=== PATIENT | female | born 1945 | race Caucasian/White ===

== ENCOUNTER 2020-11-01 04:15 | Inpatient (IN) | payer MEDICARE ==
[~2020-11-01] VITALS: Ht 170.2 cm; Wt 49.4 kg
[2020-11-01 04:00] VITALS: BP 161/74
[2020-11-01 06:06] VITALS: BP 165/75
[2020-11-01] MEDS ORDERED: MORPHINE SULFATE 2 MG/ML CPJ (NOT FOR IM USE) IV PRN (07:30)
[2020-11-01] MEDS ORDERED: GUAIFENESIN 200MG/10ML SUGAR FREE UDC PO PRN (07:30)
[2020-11-01] MEDS ORDERED: CLONIDINE 0.1MG TABLET PO PRN (07:30)
[2020-11-01] MEDS ORDERED: IPRATROPIUM/ALBUTEROL 0.5-3(2.5)MG/3ML NEB HHN PRN (07:30)
[2020-11-01] MEDS ORDERED: ONDANSETRON HCL 4MG/2ML INJ IV PRN ×2 (07:30→13:30)
[2020-11-01] MEDS ORDERED: PNEUMOCOCCAL 23-VAL P-SAC VAC 0.5 ML IM ONE (07:45)
[2020-11-01 08:00] VITALS: BP 156/77
[2020-11-01] MEDS ORDERED: DOCUSATE SODIUM 100MG CAPSULE PO PRN (09:00)
[2020-11-01] MEDS ORDERED: MAGNESIUM/ALUMINUM HYDROXIDE/SIMETHICONE 30ML UDC PO PRN (09:00)
[2020-11-01] MEDS ORDERED: POLYMYXIN B SULFATE 500000 UNITS/VIAL ONE (11:09)
[2020-11-01] MEDS ORDERED: VANCOMYCIN HCL 1 GM/VIAL ONE (11:09)
[2020-11-01 11:36] LABS: BASOPHILS % 0.6 % (0.0-2.0); EOSINOPHILS % 2.5 % (0.0-5.0); HEMATOCRIT. 21.8 % (36.0-48.0); HEMOGLOBIN. 7.4 g/dL (12.0-16.0); LYMPHOCYTES % 21.2 % (20.0-50.0); MEAN CORPUSCULAR HEMOGLOBIN 29.9 pg (28.0-32.0); MEAN CORPUSCULAR VOLUME 87.8 fL (81.0-99.0); MEAN PLATELET VOLUME 7.7 fl (7.4-10.4); MONOCYTES % 11.7 % (2.0-8.0); PLATELET 236 x1000/uL (130-400); RED BLOOD CELL COUNT 2.48 mill/uL (4.2-5.4); RED CELL DISTRIBUTION WIDTH 15.4 % (11.6-14.6)
[2020-11-01 12:00] VITALS: BP 166/80
[2020-11-01 12:11] LABS: CHLORIDE 110 mEq/L (98-107)
[2020-11-01 12:20] LABS: HDL CHOLESTEROL 35 mg/dL (40-59)
[2020-11-01 12:22] LABS: LDL CHOLESTEROL 75 mg/dL (5-100)
[2020-11-01 12:23] LABS: CREATINE KINASE 19 IU/L (26-192)
[2020-11-01] MEDS ORDERED: HYDROMORPHONE HCL/PF 2MG/ML CPJ IV PRN (13:30)
[2020-11-01] MEDS ORDERED: CEFAZOLIN SODIUM 1000MG/VIAL ONE (13:33)
[2020-11-01] MEDS ORDERED: FENTANYL CITRATE/PF 50MCG/ML 2ML VIAL ONE (13:42)
[2020-11-01] MEDS ORDERED: DEXAMETHASONE 4MG/ML 1ML VIAL ONE (13:44)
[2020-11-01] MEDS ORDERED: FUROSEMIDE 40MG/4ML VIAL ONE (14:00)
[2020-11-01] MEDS ORDERED: VANCOMYCIN 1 G PREMIX 200 ML IV NR (17:00)
[2020-11-01] MEDS ORDERED: POTASSIUM CHLORIDE 20MEQ TABLET SR PO NR (19:30)
[2020-11-01 20:00] VITALS: BP 107/59
[2020-11-01 20:21] LABS: PARTIAL THROMBOPLASTIN TIME 27.7 sec (23.4-31.0); PROTHROMBIN TIME 11.2 sec (9.6-11.0)
[2020-11-01] MEDS: HYDROCODONE/ACETAMINOPHEN 5/325MG TABLET PO PRN (20:54)
[2020-11-01] MEDS: VANCOMYCIN 750 MG PREMIX 150 ML IV SCH (21:00)
[2020-11-02] VITALS: BP 139/88
[2020-11-02 04:00] VITALS: BP 154/87
[2020-11-02] MEDS: HYDROCODONE/ACETAMINOPHEN 5/325MG TABLET PO PRN ×2 (04:51→09:20)
[2020-11-02 06:01] LABS: CLARITY URINE CLEAR (CLEAR); COLOR URINE YELLOW (YELLOW); KETONES URINE TRACE (NEGATIVE); LEUKOCYTE ESTERASE URINE NEGATIVE (NEGATIVE); NITRITE URINE NEGATIVE (NEGATIVE); OCCULT BLOOD URINE NEGATIVE (NEGATIVE); PH URINE 6.5 (4.5-8.0); PROTEIN URINE TRACE (NEGATIVE); SPECIFIC GRAVITY URINE 1.018 (1.005-1.030)
[2020-11-02 06:14] LABS: BASOPHILS % 0.1 % (0.0-2.0); HEMATOCRIT. 29.3 % (36.0-48.0); HEMOGLOBIN. 10.1 g/dL (12.0-16.0); LYMPHOCYTES % 7.5 % (20.0-50.0); MEAN CORPUSCULAR HEMOGLOBIN 29.2 pg (28.0-32.0); MEAN PLATELET VOLUME 7.9 fl (7.4-10.4); MONOCYTES % 11.5 % (2.0-8.0); NEUTROPHILS % 80.9 % (40.0-76.0); PLATELET 294 x1000/uL (130-400); RED BLOOD CELL COUNT 3.45 mill/uL (4.2-5.4); RED CELL DISTRIBUTION WIDTH 15.5 % (11.6-14.6)
[2020-11-02 06:15] LABS: CHLORIDE 106 mEq/L (98-107)
[2020-11-02] MEDS: PANTOPRAZOLE 40MG DR TABLET PO SCH (06:24)
[2020-11-02 08:00] VITALS: BP 104/67
[2020-11-02] MEDS ORDERED: ENOXAPARIN 40MG/0.4ML SYR SUBCUT SCH (09:00)
[2020-11-02] MEDS ORDERED: POTASSIUM CHLORIDE 20MEQ TABLET SR PO NR (09:00)
[2020-11-02 12:00] VITALS: BP 140/86
[2020-11-02] MEDS: VANCOMYCIN 750 MG PREMIX 150 ML IV SCH (12:00)
[2020-11-02 16:00] VITALS: BP 117/86
[2020-11-02] MEDS: DOXYCYCLINE HYCLATE 100MG CAPSULE PO SCH (18:59)
[2020-11-02 20:00] VITALS: BP 138/73
[2020-11-03 00:04] VITALS: BP 146/86
[2020-11-03 04:00] VITALS: BP 154/82
[2020-11-03 05:54] LABS: CHLORIDE 108 mEq/L (98-107)
[2020-11-03 06:11] LABS: BASOPHILS % 0.3 % (0.0-2.0); EOSINOPHILS % 0.8 % (0.0-5.0); LYMPHOCYTES % 16.2 % (20.0-50.0); MEAN CORPUSCULAR HEMOGLOBIN 28.4 pg (28.0-32.0); MEAN CORPUSCULAR VOLUME 85.1 fL (81.0-99.0); MEAN PLATELET VOLUME 7.5 fl (7.4-10.4); MONOCYTES % 10.8 % (2.0-8.0); NEUTROPHILS % 71.9 % (40.0-76.0); PLATELET 347 x1000/uL (130-400); RED BLOOD CELL COUNT 3.17 mill/uL (4.2-5.4); RED CELL DISTRIBUTION WIDTH 15.8 % (11.6-14.6)
[2020-11-03] MEDS ORDERED: POTASSIUM CHLORIDE 20MEQ TABLET SR PO SCH ×2 (06:15→14:00)
[2020-11-03] MEDS: PANTOPRAZOLE 40MG DR TABLET PO SCH (06:31)
[2020-11-03 08:00] VITALS: BP 171/92
[2020-11-03] MEDS: DOXYCYCLINE HYCLATE 100MG CAPSULE PO SCH ×2 (09:22→18:04)
[2020-11-03] MEDS: HYDROCODONE/ACETAMINOPHEN 5/325MG TABLET PO PRN ×3 (09:23→20:56)
[2020-11-03 12:00] VITALS: BP 112/68
[2020-11-03 16:00] VITALS: BP 128/71
[2020-11-03 20:00] VITALS: BP 152/81
[2020-11-04] VITALS: BP 140/72
[2020-11-04 04:00] VITALS: BP 143/59
[2020-11-04 07:34] LABS: BASOPHILS % 0.9 % (0.0-2.0); EOSINOPHILS % 4.6 % (0.0-5.0); HEMATOCRIT. 26.4 % (36.0-48.0); HEMOGLOBIN. 9.1 g/dL (12.0-16.0); MEAN CORPUSCULAR HEMOGLOBIN 29.5 pg (28.0-32.0); MEAN CORPUSCULAR VOLUME 86.1 fL (81.0-99.0); MEAN PLATELET VOLUME 7.6 fl (7.4-10.4); MONOCYTES % 11.3 % (2.0-8.0); NEUTROPHILS % 60.2 % (40.0-76.0); PLATELET 355 x1000/uL (130-400); RED BLOOD CELL COUNT 3.07 mill/uL (4.2-5.4)
[2020-11-04 07:44] LABS: CHLORIDE 111 mEq/L (98-107)
[2020-11-04 07:55] LABS: T4 FREE 1.49 ng/dL (0.76-1.46)
[2020-11-04 07:57] LABS: FOLIC ACID (FOLATE) SERUM 7.5 ng/mL (>5.38)
[2020-11-04 08:00] VITALS: BP 155/76
[2020-11-04] MEDS: DOXYCYCLINE HYCLATE 100MG CAPSULE PO SCH ×2 (08:11→18:05)
[2020-11-04] MEDS: FAMOTIDINE 20MG TABLET PO SCH (08:12)
[2020-11-04] MEDS: HYDROCODONE/ACETAMINOPHEN 5/325MG TABLET PO PRN ×4 (08:12→22:21)
[2020-11-04 12:00] VITALS: BP 165/91
[2020-11-04] MEDS: CYANOCOBALAMIN 1000MCG/ML VIAL IM SCH (14:01)
[2020-11-04 16:00] VITALS: BP 121/49
[2020-11-04 20:00] VITALS: BP 110/56
[2020-11-04 21:13] LABS: T4 FREE 1.51 ng/dL (0.76-1.46)
[2020-11-05] VITALS: BP 141/63
[2020-11-05] MEDS: HYDROCODONE/ACETAMINOPHEN 5/325MG TABLET PO PRN ×4 (01:56→18:32)
[2020-11-05 04:00] VITALS: BP 117/57
[2020-11-05 05:32] LABS: BASOPHILS % 1.2 % (0.0-2.0); EOSINOPHILS % 5.9 % (0.0-5.0); HEMOGLOBIN. 8.4 g/dL (12.0-16.0); LYMPHOCYTES % 25.1 % (20.0-50.0); MEAN CORPUSCULAR HEMOGLOBIN 29.1 pg (28.0-32.0); MEAN CORPUSCULAR VOLUME 86.7 fL (81.0-99.0); MEAN PLATELET VOLUME 7.4 fl (7.4-10.4); MONOCYTES % 10.3 % (2.0-8.0); NEUTROPHILS % 57.5 % (40.0-76.0); PLATELET 391 x1000/uL (130-400); RED BLOOD CELL COUNT 2.88 mill/uL (4.2-5.4); RED CELL DISTRIBUTION WIDTH 15.6 % (11.6-14.6)
[2020-11-05 05:38] LABS: CHLORIDE 108 mEq/L (98-107)
[2020-11-05 08:00] VITALS: BP 117/68
[2020-11-05] MEDS: CYANOCOBALAMIN 1000MCG/ML VIAL IM SCH (08:57)
[2020-11-05] MEDS: DOXYCYCLINE HYCLATE 100MG CAPSULE PO SCH ×2 (08:57→16:44)
[2020-11-05] MEDS: FAMOTIDINE 20MG TABLET PO SCH (09:34)
[2020-11-05 12:00] VITALS: BP 106/61
[2020-11-05] MEDS ORDERED: BISACODYL 10MG SUPP PR PRN (12:00)
[2020-11-05] MEDS: LACTULOSE 20G/30ML UDC PO SCH ×3 (12:47→19:35)
[2020-11-05 14:43] LABS: TOTAL IRON BINDING CAPACITY 187 ug/dL (250-450)
[2020-11-05 16:00] VITALS: BP 124/80
[2020-11-05] MEDS: FERROUS SULFATE 325MG TABLET PO SCH (18:31)
[2020-11-05 20:00] VITALS: BP 107/85
[2020-11-06] VITALS: BP 141/74
[2020-11-06] MEDS: HYDROCODONE/ACETAMINOPHEN 5/325MG TABLET PO PRN ×3 (03:56→18:52)
[2020-11-06 04:00] VITALS: BP 171/88
[2020-11-06 08:00] VITALS: BP 152/85
[2020-11-06] MEDS: FAMOTIDINE 20MG TABLET PO SCH (08:28)
[2020-11-06] MEDS: CYANOCOBALAMIN 1000MCG/ML VIAL IM SCH (08:28)
[2020-11-06] MEDS: FERROUS SULFATE 325MG TABLET PO SCH ×3 (08:29→17:41)
[2020-11-06] MEDS: ASCORBIC ACID 500 MG TABLET PO SCH (10:46)
[2020-11-06 12:00] VITALS: BP 158/86
[2020-11-06 16:00] VITALS: BP 139/63
[2020-11-06 20:00] VITALS: BP 111/58
[2020-11-07] VITALS: BP 111/58
[2020-11-07 04:00] VITALS: BP 139/65
[2020-11-07 08:00] VITALS: BP 158/79
[2020-11-07] MEDS: ASCORBIC ACID 500 MG TABLET PO SCH (08:45)
[2020-11-07] MEDS: FAMOTIDINE 20MG TABLET PO SCH (08:46)
[2020-11-07] MEDS: CYANOCOBALAMIN 1000MCG/ML VIAL IM SCH (08:46)
[2020-11-07] MEDS: FERROUS SULFATE 325MG TABLET PO SCH ×3 (08:46→17:39)
[2020-11-07] MEDS: HYDROCODONE/ACETAMINOPHEN 5/325MG TABLET PO PRN ×2 (09:24→17:40)
[2020-11-07 12:00] VITALS: BP 139/72
[2020-11-07 16:00] VITALS: BP 131/55
[2020-11-07 17:16] LABS: HEMATOCRIT 26.2 % (36.0-48.0)
[2020-11-07 22:09] VITALS: BP 122/77
[2020-11-08 01:24] VITALS: BP 131/59
[2020-11-08 05:34] VITALS: BP 150/83
[2020-11-08 08:00] VITALS: BP 143/86
[2020-11-08] MEDS: ASCORBIC ACID 500 MG TABLET PO SCH (09:42)
[2020-11-08] MEDS: CYANOCOBALAMIN 1000MCG/ML VIAL IM SCH (09:42)
[2020-11-08] MEDS: FERROUS SULFATE 325MG TABLET PO SCH ×3 (09:42→18:29)
[2020-11-08] MEDS: FAMOTIDINE 20MG TABLET PO SCH (09:42)
[2020-11-08 12:00] VITALS: BP 146/77
[2020-11-08] MEDS: HYDROCODONE/ACETAMINOPHEN 5/325MG TABLET PO PRN (15:14)
[2020-11-08 16:00] VITALS: BP 117/60
[2020-11-08] MEDS: DOCUSATE SODIUM 100MG CAPSULE PO SCH (18:29)
[2020-11-08 20:00] VITALS: BP 129/53
[2020-11-08] MEDS: POLYETHYLENE GLYCOL 3350 (17GM) 1 DOSE PACK PO SCH (22:04)
[2020-11-09] VITALS: BP 131/70
[2020-11-09 04:00] VITALS: BP 140/77
[2020-11-09 08:00] VITALS: BP 139/84
[2020-11-09] MEDS: ASCORBIC ACID 500 MG TABLET PO SCH (09:17)
[2020-11-09] MEDS: FAMOTIDINE 20MG TABLET PO SCH (09:17)
[2020-11-09] MEDS: DOCUSATE SODIUM 100MG CAPSULE PO SCH ×2 (09:17→18:07)
[2020-11-09] MEDS: FERROUS SULFATE 325MG TABLET PO SCH ×3 (09:17→18:07)
[2020-11-09] MEDS: CYANOCOBALAMIN 1000MCG/ML VIAL IM SCH (09:20)
[2020-11-09] MEDS: HYDROCODONE/ACETAMINOPHEN 5/325MG TABLET PO PRN (09:22)
[2020-11-09 12:00] VITALS: BP 125/68
[2020-11-09] MEDS: LACTULOSE 20G/30ML UDC PO SCH ×3 (14:39→21:00)
[2020-11-09 15:12] LABS: 25-HYDROXY VITAMIN D3 8.1 ng/mL (.)
[2020-11-09 16:00] VITALS: BP 138/55
[2020-11-09 20:00] VITALS: BP 127/70
[2020-11-09] MEDS: POLYETHYLENE GLYCOL 3350 (17GM) 1 DOSE PACK PO SCH (21:00)
[2020-11-10] VITALS: BP 134/83
[2020-11-10 04:00] VITALS: BP 124/81
[2020-11-10 06:20] LABS: BASOPHILS % 1.2 % (0.0-2.0); EOSINOPHILS % 4.3 % (0.0-5.0); HEMOGLOBIN. 9.5 g/dL (12.0-16.0); MEAN CORPUSCULAR HEMOGLOBIN 28.3 pg (28.0-32.0); MEAN CORPUSCULAR VOLUME 86.1 fL (81.0-99.0); MEAN PLATELET VOLUME 7.4 fl (7.4-10.4); MONOCYTES % 12.6 % (2.0-8.0); NEUTROPHILS % 58.9 % (40.0-76.0); PLATELET 601 x1000/uL (130-400); RED BLOOD CELL COUNT 3.37 mill/uL (4.2-5.4); RED CELL DISTRIBUTION WIDTH 16.6 % (11.6-14.6)
[2020-11-10 06:25] LABS: CHLORIDE 107 mEq/L (98-107)
[2020-11-10] MEDS: MULTIVITAMINS,THER W-MINERALS TABLET PO SCH (08:40)
[2020-11-10] MEDS: DOCUSATE SODIUM 100MG CAPSULE PO SCH ×2 (08:40→18:00)
[2020-11-10] MEDS: CYANOCOBALAMIN 1000MCG/ML VIAL IM SCH (08:41)
[2020-11-10] MEDS: FAMOTIDINE 20MG TABLET PO SCH (08:42)
[2020-11-10] MEDS: ASCORBIC ACID 500 MG TABLET PO SCH (08:42)
[2020-11-10] MEDS: HYDROCODONE/ACETAMINOPHEN 5/325MG TABLET PO PRN ×2 (08:44→13:56)
[2020-11-10] MEDS: FERROUS SULFATE 325MG TABLET PO SCH ×3 (09:16→18:01)
[2020-11-10] MEDS ORDERED: ERGOCALCIFEROL 50000UNITS CAPSULE PO SCH (17:00)
[2020-11-10 20:00] VITALS: BP 122/68
[2020-11-10] MEDS: POLYETHYLENE GLYCOL 3350 (17GM) 1 DOSE PACK PO SCH (21:14)
[2020-11-11] VITALS: BP 112/54
[2020-11-11 04:00] VITALS: BP 131/69
[2020-11-11] MEDS: FERROUS SULFATE 325MG TABLET PO SCH ×3 (08:24→17:37)
[2020-11-11] MEDS: DOCUSATE SODIUM 100MG CAPSULE PO SCH ×2 (09:24→17:37)
[2020-11-11] MEDS: MULTIVITAMINS,THER W-MINERALS TABLET PO SCH (09:24)
[2020-11-11] MEDS: ASCORBIC ACID 500 MG TABLET PO SCH (09:24)
[2020-11-11] MEDS: FAMOTIDINE 20MG TABLET PO SCH (09:24)
[2020-11-11] MEDS: HYDROCODONE/ACETAMINOPHEN 5/325MG TABLET PO PRN ×2 (09:24→17:37)
[2020-11-11 16:00] VITALS: BP 121/73
[2020-11-11] MEDS ORDERED: NALOXONE HCL 0.4MG/ML VIAL IV PRN (19:30)
[2020-11-11 20:00] VITALS: BP 115/69
[2020-11-11] MEDS: POLYETHYLENE GLYCOL 3350 (17GM) 1 DOSE PACK PO SCH (21:41)
[2020-11-12] VITALS: BP 128/61
[2020-11-12 04:00] VITALS: BP 139/80
[2020-11-12 05:29] VITALS: BP 139/80
[2020-11-12] MEDS: ASCORBIC ACID 500 MG TABLET PO SCH (08:52)
[2020-11-12] MEDS: FERROUS SULFATE 325MG TABLET PO SCH ×3 (08:52→17:52)
[2020-11-12] MEDS: FAMOTIDINE 20MG TABLET PO SCH (08:52)
[2020-11-12] MEDS: DOCUSATE SODIUM 100MG CAPSULE PO SCH ×2 (08:53→17:52)
[2020-11-12] MEDS: MULTIVITAMINS,THER W-MINERALS TABLET PO SCH (09:17)
[2020-11-12] MEDS: HYDROCODONE/ACETAMINOPHEN 5/325MG TABLET PO PRN (09:18)
[2020-11-12 20:00] VITALS: BP 154/94
[2020-11-12] MEDS: POLYETHYLENE GLYCOL 3350 (17GM) 1 DOSE PACK PO SCH (21:00)
[2020-11-13] VITALS: BP 146/67
[2020-11-13 04:00] VITALS: BP 143/67
[2020-11-13] MEDS: FAMOTIDINE 20MG TABLET PO SCH (08:30)
[2020-11-13] MEDS: DOCUSATE SODIUM 100MG CAPSULE PO SCH ×2 (08:30→16:40)
[2020-11-13] MEDS: FERROUS SULFATE 325MG TABLET PO SCH ×3 (08:30→17:18)
[2020-11-13] MEDS: MULTIVITAMINS,THER W-MINERALS TABLET PO SCH (08:31)
[2020-11-13] MEDS: ASCORBIC ACID 500 MG TABLET PO SCH (08:31)
[2020-11-13 12:00] VITALS: BP 119/74
[2020-11-13 16:00] VITALS: BP 95/74
[2020-11-13 20:00] VITALS: BP 128/82
[2020-11-13] MEDS: POLYETHYLENE GLYCOL 3350 (17GM) 1 DOSE PACK PO SCH (20:30)
[2020-11-14] VITALS: BP_SYST 118; BP_SYST 133; BP_DIAS 55; BP_DIAS 80
[2020-11-14 04:00] VITALS: BP 159/93
[2020-11-14 08:00] VITALS: BP 122/68
[2020-11-14] MEDS: FERROUS SULFATE 325MG TABLET PO SCH ×3 (08:36→17:16)
[2020-11-14] MEDS: DOCUSATE SODIUM 100MG CAPSULE PO SCH ×2 (08:36→16:56)
[2020-11-14] MEDS: ASCORBIC ACID 500 MG TABLET PO SCH (08:37)
[2020-11-14] MEDS: MULTIVITAMINS,THER W-MINERALS TABLET PO SCH (08:37)
[2020-11-14] MEDS: FAMOTIDINE 20MG TABLET PO SCH (08:37)
[2020-11-14] MEDS: HYDROCODONE/ACETAMINOPHEN 5/325MG TABLET PO PRN ×4 (08:45→21:38)
[2020-11-14 12:00] VITALS: BP 126/69
[2020-11-14 16:00] VITALS: BP 130/71
[2020-11-14 20:00] VITALS: BP 116/63
[2020-11-14] MEDS: POLYETHYLENE GLYCOL 3350 (17GM) 1 DOSE PACK PO SCH (21:37)
[2020-11-15] VITALS: BP 134/80
[2020-11-15 04:00] VITALS: BP 144/81
[2020-11-15 08:00] VITALS: BP 133/44
[2020-11-15] MEDS: DOCUSATE SODIUM 100MG CAPSULE PO SCH ×2 (08:52→17:32)
[2020-11-15] MEDS: MULTIVITAMINS,THER W-MINERALS TABLET PO SCH (08:52)
[2020-11-15] MEDS: ASCORBIC ACID 500 MG TABLET PO SCH (08:52)
[2020-11-15] MEDS: FAMOTIDINE 20MG TABLET PO SCH (08:52)
[2020-11-15] MEDS: FERROUS SULFATE 325MG TABLET PO SCH ×3 (08:52→17:32)
[2020-11-15] MEDS: HYDROCODONE/ACETAMINOPHEN 5/325MG TABLET PO PRN ×2 (08:53→17:34)
[2020-11-15 12:00] VITALS: BP 136/76
[2020-11-15] MEDS: POLYETHYLENE GLYCOL 3350 (17GM) 1 DOSE PACK PO SCH (20:38)
[2020-11-16 08:00] VITALS: BP 142/92
[2020-11-16] MEDS: MULTIVITAMINS,THER W-MINERALS TABLET PO SCH (09:10)
[2020-11-16] MEDS: FERROUS SULFATE 325MG TABLET PO SCH ×3 (09:10→18:05)
[2020-11-16] MEDS: DOCUSATE SODIUM 100MG CAPSULE PO SCH ×2 (09:10→18:05)
[2020-11-16] MEDS: HYDROCODONE/ACETAMINOPHEN 5/325MG TABLET PO PRN ×2 (09:11→20:08)
[2020-11-16] MEDS: ASCORBIC ACID 500 MG TABLET PO SCH (09:15)
[2020-11-16] MEDS: FAMOTIDINE 20MG TABLET PO SCH (13:09)
[2020-11-16 20:00] VITALS: BP 109/61
[2020-11-16] MEDS: POLYETHYLENE GLYCOL 3350 (17GM) 1 DOSE PACK PO SCH (21:00)
[2020-11-16 21:40] LABS: BASOPHILS % 1.5 % (0.0-2.0); EOSINOPHILS % 2.1 % (0.0-5.0); HEMATOCRIT. 30.9 % (36.0-48.0); HEMOGLOBIN. 10.2 g/dL (12.0-16.0); LYMPHOCYTES % 20.4 % (20.0-50.0); MEAN CORPUSCULAR HEMOGLOBIN 28.9 pg (28.0-32.0); MEAN CORPUSCULAR VOLUME 87.6 fL (81.0-99.0); MEAN PLATELET VOLUME 7.6 fl (7.4-10.4); MONOCYTES % 11.6 % (2.0-8.0); NEUTROPHILS % 64.4 % (40.0-76.0); PLATELET 381 x1000/uL (130-400); RED BLOOD CELL COUNT 3.52 mill/uL (4.2-5.4); RED CELL DISTRIBUTION WIDTH 17.5 % (11.6-14.6)
[2020-11-16 21:47] LABS: CHLORIDE 107 mEq/L (98-107)
[2020-11-17] VITALS: BP 116/70
[2020-11-17 04:00] VITALS: BP 128/44
[2020-11-17 08:00] VITALS: BP 96/51
[2020-11-17] MEDS: ERGOCALCIFEROL 50000UNITS CAPSULE PO SCH (09:14)
[2020-11-17] MEDS: FAMOTIDINE 20MG TABLET PO SCH (09:14)
[2020-11-17] MEDS: DOCUSATE SODIUM 100MG CAPSULE PO SCH ×2 (09:14→17:00)
[2020-11-17] MEDS: FERROUS SULFATE 325MG TABLET PO SCH ×3 (09:14→17:21)
[2020-11-17] MEDS: ASCORBIC ACID 500 MG TABLET PO SCH (09:14)
[2020-11-17] MEDS: HYDROCODONE/ACETAMINOPHEN 5/325MG TABLET PO PRN (09:15)
[2020-11-17] MEDS: MULTIVITAMINS,THER W-MINERALS TABLET PO SCH (09:15)
[2020-11-17] MEDS: CYANOCOBALAMIN 1000MCG/ML VIAL IM SCH (09:15)
[2020-11-17 12:00] VITALS: BP 150/67
[2020-11-17 16:00] VITALS: BP 155/75
[2020-11-17] MEDS ORDERED: NALOXONE HCL 0.4MG/ML VIAL IV PRN (17:45)
[2020-11-17 20:00] VITALS: BP 146/68
[2020-11-17] MEDS: POLYETHYLENE GLYCOL 3350 (17GM) 1 DOSE PACK PO SCH (20:49)
[2020-11-18] VITALS: BP 120/55
[2020-11-18 04:00] VITALS: BP 151/71
[2020-11-18 08:00] VITALS: BP 167/84
[2020-11-18] MEDS: MULTIVITAMINS,THER W-MINERALS TABLET PO SCH (08:18)
[2020-11-18] MEDS: ASCORBIC ACID 500 MG TABLET PO SCH (08:18)
[2020-11-18] MEDS: FERROUS SULFATE 325MG TABLET PO SCH ×3 (08:18→16:25)
[2020-11-18] MEDS: FAMOTIDINE 20MG TABLET PO SCH (08:18)
[2020-11-18] MEDS: DOCUSATE SODIUM 100MG CAPSULE PO SCH ×2 (09:00→16:26)
[2020-11-18 12:00] VITALS: BP 97/61
[2020-11-18 16:00] VITALS: BP 149/61
[2020-11-18 20:00] VITALS: BP 125/79
[2020-11-18] MEDS: POLYETHYLENE GLYCOL 3350 (17GM) 1 DOSE PACK PO SCH (21:00)
[2020-11-19] VITALS: BP 134/92
[2020-11-19 04:00] VITALS: BP 141/83
[2020-11-19 08:00] VITALS: BP 140/79
[2020-11-19] MEDS: DOCUSATE SODIUM 100MG CAPSULE PO SCH ×2 (09:15→18:15)
[2020-11-19] MEDS: FERROUS SULFATE 325MG TABLET PO SCH ×3 (09:15→18:15)
[2020-11-19] MEDS: MULTIVITAMINS,THER W-MINERALS TABLET PO SCH (09:15)
[2020-11-19] MEDS: HYDROCODONE/ACETAMINOPHEN 5/325MG TABLET PO PRN (09:15)
[2020-11-19] MEDS: ASCORBIC ACID 500 MG TABLET PO SCH (09:16)
[2020-11-19] MEDS: FAMOTIDINE 20MG TABLET PO SCH (09:16)
[2020-11-19 12:00] VITALS: BP 131/77
[2020-11-19 16:00] VITALS: BP 131/83
[2020-11-19 20:00] VITALS: BP 131/83
[2020-11-19] MEDS: POLYETHYLENE GLYCOL 3350 (17GM) 1 DOSE PACK PO SCH (20:32)
[2020-11-20] VITALS: BP 127/71
[2020-11-20 04:00] VITALS: BP 131/72
[2020-11-20 05:48] LABS: BASOPHILS % 1.3 % (0.0-2.0); EOSINOPHILS % 3.4 % (0.0-5.0); HEMATOCRIT. 31.7 % (36.0-48.0); HEMOGLOBIN. 10.4 g/dL (12.0-16.0); LYMPHOCYTES % 28.5 % (20.0-50.0); MEAN CORPUSCULAR HEMOGLOBIN 29.3 pg (28.0-32.0); MEAN CORPUSCULAR VOLUME 88.9 fL (81.0-99.0); MEAN PLATELET VOLUME 8.7 fl (7.4-10.4); MONOCYTES % 12.1 % (2.0-8.0); NEUTROPHILS % 54.7 % (40.0-76.0); PLATELET 315 x1000/uL (130-400); RED BLOOD CELL COUNT 3.57 mill/uL (4.2-5.4); RED CELL DISTRIBUTION WIDTH 17.5 % (11.6-14.6)
[2020-11-20 06:15] LABS: CHLORIDE 112 mEq/L (98-107)
[2020-11-20 08:00] VITALS: BP 146/68
[2020-11-20] MEDS: MULTIVITAMINS,THER W-MINERALS TABLET PO SCH (10:13)
[2020-11-20] MEDS: DOCUSATE SODIUM 100MG CAPSULE PO SCH ×2 (10:13→17:09)
[2020-11-20] MEDS: ASCORBIC ACID 500 MG TABLET PO SCH (10:13)
[2020-11-20] MEDS: FAMOTIDINE 20MG TABLET PO SCH (10:13)
[2020-11-20] MEDS: FERROUS SULFATE 325MG TABLET PO SCH ×3 (10:13→18:21)
[2020-11-20] MEDS: HYDROCODONE/ACETAMINOPHEN 5/325MG TABLET PO PRN ×2 (10:26→17:14)
[2020-11-20 12:00] VITALS: BP 103/56
[2020-11-20 16:00] VITALS: BP 101/60
[2020-11-20] MEDS ORDERED: POTASSIUM CHLORIDE 20MEQ TABLET SR PO NR (16:15)
[2020-11-20 20:00] VITALS: BP 127/88
[2020-11-20] MEDS: POLYETHYLENE GLYCOL 3350 (17GM) 1 DOSE PACK PO SCH (20:27)
[2020-11-21] VITALS: BP 118/65
[2020-11-21 04:00] VITALS: BP 115/83
[2020-11-21 08:00] VITALS: BP 128/78
[2020-11-21] MEDS: FAMOTIDINE 20MG TABLET PO SCH (08:30)
[2020-11-21] MEDS: FERROUS SULFATE 325MG TABLET PO SCH ×3 (08:30→17:58)
[2020-11-21] MEDS: ASCORBIC ACID 500 MG TABLET PO SCH (08:30)
[2020-11-21] MEDS: MULTIVITAMINS,THER W-MINERALS TABLET PO SCH (08:30)
[2020-11-21] MEDS: DOCUSATE SODIUM 100MG CAPSULE PO SCH ×2 (08:30→17:00)
[2020-11-21 12:00] VITALS: BP 143/78
[2020-11-21 16:00] VITALS: BP 139/66
[2020-11-21 20:00] VITALS: BP 110/60
[2020-11-21] MEDS: POLYETHYLENE GLYCOL 3350 (17GM) 1 DOSE PACK PO SCH (21:00)
[2020-11-22] VITALS: BP 115/75
[2020-11-22 04:00] VITALS: BP 136/63
[2020-11-22 08:00] VITALS: BP 139/76
[2020-11-22] MEDS: FERROUS SULFATE 325MG TABLET PO SCH ×3 (08:42→17:42)
[2020-11-22] MEDS: ASCORBIC ACID 500 MG TABLET PO SCH (08:42)
[2020-11-22] MEDS: FAMOTIDINE 20MG TABLET PO SCH (08:42)
[2020-11-22] MEDS: DOCUSATE SODIUM 100MG CAPSULE PO SCH (08:42)
[2020-11-22] MEDS: MULTIVITAMINS,THER W-MINERALS TABLET PO SCH (10:02)
[2020-11-22] MEDS: HYDROCODONE/ACETAMINOPHEN 5/325MG TABLET PO PRN (10:12)
[2020-11-22] MEDS ORDERED: FERR325T23 PO (11:08)
[2020-11-22] MEDS ORDERED: HYDR-4001 PO (11:08)
[2020-11-22] MEDS ORDERED: DOCU-150 PO (11:08)
[2020-11-22] MEDS ORDERED: FAMO20TA8 PO (11:08)
[2020-11-22 12:00] VITALS: BP 104/71
[2020-11-22] MEDS: ENOXAPARIN 40MG/0.4ML SYR SUBCUT SCH (12:41)
[2020-11-22 16:00] VITALS: BP 109/71
[2020-11-22 20:00] VITALS: BP 102/68
[2020-11-23] VITALS: BP 114/70
[2020-11-23 04:00] VITALS: BP 138/82
[2020-11-23 08:00] VITALS: BP 132/54
[2020-11-23] MEDS: FERROUS SULFATE 325MG TABLET PO SCH ×3 (09:52→17:42)
[2020-11-23] MEDS: FAMOTIDINE 20MG TABLET PO SCH (09:52)
[2020-11-23] MEDS: ASCORBIC ACID 500 MG TABLET PO SCH (09:52)
[2020-11-23] MEDS: HYDROCODONE/ACETAMINOPHEN 5/325MG TABLET PO PRN ×2 (09:54→22:07)
[2020-11-23] MEDS: MULTIVITAMINS,THER W-MINERALS TABLET PO SCH (10:00)
[2020-11-23] MEDS: ENOXAPARIN 40MG/0.4ML SYR SUBCUT SCH (11:00)
[2020-11-23 12:00] VITALS: BP 119/73
[2020-11-23 16:00] VITALS: BP 132/82
[2020-11-23 20:00] VITALS: BP 102/69
[2020-11-24] VITALS: BP 107/56
[2020-11-24 04:00] VITALS: BP 110/69
[2020-11-24 08:00] VITALS: BP 130/75
[2020-11-24] MEDS: CYANOCOBALAMIN 1000MCG/ML VIAL IM SCH (09:23)
[2020-11-24] MEDS: ERGOCALCIFEROL 50000UNITS CAPSULE PO SCH (09:23)
[2020-11-24] MEDS: ASCORBIC ACID 500 MG TABLET PO SCH (09:23)
[2020-11-24] MEDS: FERROUS SULFATE 325MG TABLET PO SCH ×3 (09:23→18:05)
[2020-11-24] MEDS: FAMOTIDINE 20MG TABLET PO SCH (09:23)
[2020-11-24] MEDS: MULTIVITAMINS,THER W-MINERALS TABLET PO SCH (09:23)
[2020-11-24] MEDS: ENOXAPARIN 40MG/0.4ML SYR SUBCUT SCH (11:14)
[2020-11-24 12:00] VITALS: BP 133/82
[2020-11-24 16:00] VITALS: BP 136/75
[2020-11-24] MEDS: HYDROCODONE/ACETAMINOPHEN 5/325MG TABLET PO PRN (18:05)
[2020-11-24 20:00] VITALS: BP 128/71
[2020-11-25] VITALS: BP 127/75
[2020-11-25 04:00] VITALS: BP 124/67
[2020-11-25] MEDS: HYDROCODONE/ACETAMINOPHEN 5/325MG TABLET PO PRN ×3 (05:35→20:06)
[2020-11-25 07:11] LABS: BASOPHILS % 1.5 % (0.0-2.0); HEMATOCRIT. 30.8 % (36.0-48.0); HEMOGLOBIN. 10.1 g/dL (12.0-16.0); LYMPHOCYTES % 40.4 % (20.0-50.0); MEAN CORPUSCULAR HEMOGLOBIN 28.8 pg (28.0-32.0); MEAN PLATELET VOLUME 9.1 fl (7.4-10.4); MONOCYTES % 11.6 % (2.0-8.0); NEUTROPHILS % 40.5 % (40.0-76.0); PLATELET 267 x1000/uL (130-400); RED CELL DISTRIBUTION WIDTH 17.4 % (11.6-14.6)
[2020-11-25 07:18] LABS: CHLORIDE 110 mEq/L (98-107)
[2020-11-25 08:00] VITALS: BP 109/76
[2020-11-25] MEDS: ENOXAPARIN 30MG/0.3ML SYR SUBCUT SCH (09:03)
[2020-11-25] MEDS: FAMOTIDINE 20MG TABLET PO SCH (09:04)
[2020-11-25] MEDS: FERROUS SULFATE 325MG TABLET PO SCH ×3 (09:04→18:28)
[2020-11-25] MEDS: ASCORBIC ACID 500 MG TABLET PO SCH (09:04)
[2020-11-25] MEDS: MULTIVITAMINS,THER W-MINERALS TABLET PO SCH (09:04)
[2020-11-25 12:00] VITALS: BP 130/73
[2020-11-25 16:00] VITALS: BP 118/49
[2020-11-25] MEDS ORDERED: NALOXONE HCL 0.4MG/ML VIAL IV PRN (17:45)
[2020-11-25 20:00] VITALS: BP 113/88
[2020-11-26] VITALS: BP 97/61
[2020-11-26 04:00] VITALS: BP 99/66
[2020-11-26] MEDS: HYDROCODONE/ACETAMINOPHEN 5/325MG TABLET PO PRN ×2 (05:04→09:22)
[2020-11-26 08:00] VITALS: BP 123/74
[2020-11-26] MEDS: FERROUS SULFATE 325MG TABLET PO SCH ×3 (09:15→17:45)
[2020-11-26] MEDS: ASCORBIC ACID 500 MG TABLET PO SCH (09:15)
[2020-11-26] MEDS: ENOXAPARIN 30MG/0.3ML SYR SUBCUT SCH (09:15)
[2020-11-26] MEDS: MULTIVITAMINS,THER W-MINERALS TABLET PO SCH (09:15)
[2020-11-26] MEDS: FAMOTIDINE 20MG TABLET PO SCH (09:15)
[2020-11-26 12:00] VITALS: BP 97/58
[2020-11-26 16:00] VITALS: BP 115/64
[2020-11-26 20:00] VITALS: BP 113/68
[2020-11-27] VITALS: BP 121/65
[2020-11-27 04:00] VITALS: BP 121/65
[2020-11-27 08:00] VITALS: BP 128/78
[2020-11-27] MEDS: FAMOTIDINE 20MG TABLET PO SCH (09:10)
[2020-11-27] MEDS: ASCORBIC ACID 500 MG TABLET PO SCH (09:10)
[2020-11-27] MEDS: FERROUS SULFATE 325MG TABLET PO SCH ×3 (09:10→17:48)
[2020-11-27] MEDS: MULTIVITAMINS,THER W-MINERALS TABLET PO SCH (09:10)
[2020-11-27] MEDS: ENOXAPARIN 30MG/0.3ML SYR SUBCUT SCH (09:11)
[2020-11-27 12:00] VITALS: BP 145/87
[2020-11-27] MEDS: HYDROCODONE/ACETAMINOPHEN 5/325MG TABLET PO PRN (12:42)
[2020-11-27 16:00] VITALS: BP 130/76
[2020-11-27 20:00] VITALS: BP 139/75
[2020-11-28] VITALS: BP 143/89
[2020-11-28 04:00] VITALS: BP 131/74
[2020-11-28 08:00] VITALS: BP 113/84
[2020-11-28] MEDS: ASCORBIC ACID 500 MG TABLET PO SCH (08:52)
[2020-11-28] MEDS: FERROUS SULFATE 325MG TABLET PO SCH ×3 (08:52→18:17)
[2020-11-28] MEDS: FAMOTIDINE 20MG TABLET PO SCH (08:52)
[2020-11-28] MEDS: MULTIVITAMINS,THER W-MINERALS TABLET PO SCH (08:54)
[2020-11-28] MEDS: ENOXAPARIN 30MG/0.3ML SYR SUBCUT SCH (08:54)
[2020-11-28 12:00] VITALS: BP 120/93
[2020-11-28 13:28] LABS: BASOPHILS % 0.1 % (0.0-2.0); EOSINOPHILS % 5.1 % (0.0-5.0); HEMATOCRIT. 34.8 % (36.0-48.0); HEMOGLOBIN. 11.6 g/dL (12.0-16.0); LYMPHOCYTES % 38.6 % (20.0-50.0); MEAN CORPUSCULAR HEMOGLOBIN 29.4 pg (28.0-32.0); MEAN CORPUSCULAR VOLUME 88.4 fL (81.0-99.0); MEAN PLATELET VOLUME 8.5 fl (7.4-10.4); MONOCYTES % 11.1 % (2.0-8.0); NEUTROPHILS % 45.1 % (40.0-76.0); PLATELET 293 x1000/uL (130-400); RED BLOOD CELL COUNT 3.94 mill/uL (4.2-5.4); RED CELL DISTRIBUTION WIDTH 17.4 % (11.6-14.6)
[2020-11-28 14:36] LABS: CHLORIDE 109 mEq/L (98-107)
[2020-11-28 16:00] VITALS: BP 154/97
[2020-11-28 20:00] VITALS: BP 111/73
[2020-11-29 00:44] VITALS: BP 124/67
[2020-11-29 04:00] VITALS: BP 126/64
[2020-11-29 08:00] VITALS: BP 136/78
[2020-11-29] MEDS: FERROUS SULFATE 325MG TABLET PO SCH ×3 (09:07→18:16)
[2020-11-29] MEDS: ASCORBIC ACID 500 MG TABLET PO SCH (09:08)
[2020-11-29] MEDS: ENOXAPARIN 30MG/0.3ML SYR SUBCUT SCH (09:08)
[2020-11-29] MEDS: FAMOTIDINE 20MG TABLET PO SCH (09:08)
[2020-11-29] MEDS: MULTIVITAMINS,THER W-MINERALS TABLET PO SCH (09:08)
[2020-11-29] MEDS: HYDROCODONE/ACETAMINOPHEN 5/325MG TABLET PO PRN ×2 (10:43→20:53)
[2020-11-29 12:00] VITALS: BP 133/70
[2020-11-29 16:00] VITALS: BP 145/74
[2020-11-29 20:00] VITALS: BP 113/57
[2020-11-30] VITALS: BP 83/52
[2020-11-30 01:00] VITALS: BP 106/56
[2020-11-30] MEDS ORDERED: SODIUM CHLORIDE 0.9% 500 ML IV NR (01:00)
[2020-11-30 01:42] LABS: BASOPHILS % 1.5 % (0.0-2.0); EOSINOPHILS % 6.9 % (0.0-5.0); HEMATOCRIT. 32.6 % (36.0-48.0); HEMOGLOBIN. 10.5 g/dL (12.0-16.0); LYMPHOCYTES % 30.6 % (20.0-50.0); MEAN CORPUSCULAR HEMOGLOBIN 28.7 pg (28.0-32.0); MEAN PLATELET VOLUME 8.9 fl (7.4-10.4); MONOCYTES % 13.8 % (2.0-8.0); NEUTROPHILS % 47.2 % (40.0-76.0); PLATELET 288 x1000/uL (130-400); RED BLOOD CELL COUNT 3.67 mill/uL (4.2-5.4); RED CELL DISTRIBUTION WIDTH 17.6 % (11.6-14.6)
[2020-11-30 01:46] LABS: CHLORIDE 112 mEq/L (98-107)
[2020-11-30 04:00] VITALS: BP 105/71
[2020-11-30] MEDS: FAMOTIDINE 20MG TABLET PO SCH (09:38)
[2020-11-30] MEDS: ENOXAPARIN 30MG/0.3ML SYR SUBCUT SCH (09:38)
[2020-11-30] MEDS: FERROUS SULFATE 325MG TABLET PO SCH ×3 (09:38→17:21)
[2020-11-30] MEDS: ASCORBIC ACID 500 MG TABLET PO SCH (09:38)
[2020-11-30] MEDS: CYANOCOBALAMIN 1000MCG/ML VIAL IM SCH (09:41)
[2020-11-30] MEDS: ERGOCALCIFEROL 50000UNITS CAPSULE PO SCH (09:41)
[2020-11-30] MEDS: MULTIVITAMINS,THER W-MINERALS TABLET PO SCH (09:41)
[2020-11-30] MEDS: HYDROCODONE/ACETAMINOPHEN 5/325MG TABLET PO PRN (10:48)
[2020-11-30 12:29] VITALS: BP 112/68
[2020-11-30 16:00] VITALS: BP 108/62
[2020-11-30 20:00] VITALS: BP 113/97
[2020-12-01] VITALS: BP 97/67
[2020-12-01 04:00] VITALS: BP 110/85
[2020-12-01] MEDS: FERROUS SULFATE 325MG TABLET PO SCH ×3 (06:54→18:44)
[2020-12-01 08:00] VITALS: BP 139/67
[2020-12-01] MEDS: ASCORBIC ACID 500 MG TABLET PO SCH (09:03)
[2020-12-01] MEDS: ENOXAPARIN 30MG/0.3ML SYR SUBCUT SCH (09:03)
[2020-12-01] MEDS: MULTIVITAMINS,THER W-MINERALS TABLET PO SCH (09:03)
[2020-12-01] MEDS: FAMOTIDINE 20MG TABLET PO SCH (09:03)
[2020-12-01 12:00] VITALS: BP 125/56
[2020-12-01] MEDS: HYDROCODONE/ACETAMINOPHEN 5/325MG TABLET PO PRN (16:15)
[2020-12-01 20:00] VITALS: BP 130/65
[2020-12-01] MEDS ORDERED: NALOXONE HCL 0.4MG/ML VIAL IV PRN (21:30)
[2020-12-02] VITALS: BP 121/60
[2020-12-02 04:00] VITALS: BP 83/49
[2020-12-02 08:00] VITALS: BP 154/77
[2020-12-02] MEDS: FAMOTIDINE 20MG TABLET PO SCH (09:04)
[2020-12-02] MEDS: FERROUS SULFATE 325MG TABLET PO SCH ×3 (09:04→17:05)
[2020-12-02] MEDS: ASCORBIC ACID 500 MG TABLET PO SCH (09:04)
[2020-12-02] MEDS: ENOXAPARIN 30MG/0.3ML SYR SUBCUT SCH (09:05)
[2020-12-02] MEDS: MULTIVITAMINS,THER W-MINERALS TABLET PO SCH (09:05)
[2020-12-02 12:00] VITALS: BP 119/69
[2020-12-02 16:00] VITALS: BP 134/77
[2020-12-02 20:00] VITALS: BP 100/51
[2020-12-03] VITALS: BP 98/52
[2020-12-03 04:00] VITALS: BP 102/50
[2020-12-03] MEDS: HYDROCODONE/ACETAMINOPHEN 5/325MG TABLET PO PRN (07:41)
[2020-12-03 08:00] VITALS: BP 106/64
[2020-12-03] MEDS: FERROUS SULFATE 325MG TABLET PO SCH ×3 (09:35→17:26)
[2020-12-03] MEDS: MULTIVITAMINS,THER W-MINERALS TABLET PO SCH (09:35)
[2020-12-03] MEDS: ENOXAPARIN 30MG/0.3ML SYR SUBCUT SCH (09:35)
[2020-12-03] MEDS: ASCORBIC ACID 500 MG TABLET PO SCH (09:35)
[2020-12-03 12:00] VITALS: BP 129/53
[2020-12-03 16:00] VITALS: BP 125/62
[2020-12-03 20:00] VITALS: BP 130/66
[2020-12-04] VITALS: BP 134/67
[2020-12-04 04:00] VITALS: BP 114/54
[2020-12-04 08:00] VITALS: BP 131/74
[2020-12-04] MEDS: ASCORBIC ACID 500 MG TABLET PO SCH (08:39)
[2020-12-04] MEDS: MULTIVITAMINS,THER W-MINERALS TABLET PO SCH (08:39)
[2020-12-04] MEDS: ENOXAPARIN 30MG/0.3ML SYR SUBCUT SCH (08:40)
[2020-12-04] MEDS: HYDROCODONE/ACETAMINOPHEN 5/325MG TABLET PO PRN (08:52)
[2020-12-04 20:00] VITALS: BP 127/74
[2020-12-05] VITALS: BP 158/72
[2020-12-05 04:00] VITALS: BP_SYST 132; BP_SYST 137; BP_DIAS 55; BP_DIAS 76
[2020-12-05] MEDS: HYDROCODONE/ACETAMINOPHEN 5/325MG TABLET PO PRN ×2 (06:28→15:32)
[2020-12-05 08:00] VITALS: BP 132/80
[2020-12-05] MEDS: ENOXAPARIN 30MG/0.3ML SYR SUBCUT SCH (08:38)
[2020-12-05] MEDS: MULTIVITAMINS,THER W-MINERALS TABLET PO SCH (08:38)
[2020-12-05 12:00] VITALS: BP_SYST 108; BP_SYST 120; BP_DIAS 50; BP_DIAS 64
[2020-12-05 16:00] VITALS: BP 108/50
[2020-12-06 08:00] VITALS: BP 130/75
[2020-12-06] MEDS: ENOXAPARIN 30MG/0.3ML SYR SUBCUT SCH (09:13)
[2020-12-06] MEDS: MULTIVITAMINS,THER W-MINERALS TABLET PO SCH (09:13)
[2020-12-06 12:00] VITALS: BP 121/56
[2020-12-06 16:00] VITALS: BP 132/71
[2020-12-06 20:00] VITALS: BP 130/63
[2020-12-06] MEDS: HYDROCODONE/ACETAMINOPHEN 5/325MG TABLET PO PRN (20:49)
[2020-12-07] VITALS: BP 125/58
[2020-12-07 04:00] VITALS: BP 95/59
[2020-12-07 08:00] VITALS: BP 113/60
[2020-12-07 08:03] LABS: BASOPHILS % 1.8 % (0.0-2.0); EOSINOPHILS % 5.9 % (0.0-5.0); HEMATOCRIT. 31.5 % (36.0-48.0); HEMOGLOBIN. 10.5 g/dL (12.0-16.0); LYMPHOCYTES % 40.2 % (20.0-50.0); MEAN CORPUSCULAR HEMOGLOBIN 29.5 pg (28.0-32.0); MEAN CORPUSCULAR VOLUME 88.6 fL (81.0-99.0); MEAN PLATELET VOLUME 9.2 fl (7.4-10.4); MONOCYTES % 12.7 % (2.0-8.0); NEUTROPHILS % 39.4 % (40.0-76.0); PLATELET 272 x1000/uL (130-400); RED BLOOD CELL COUNT 3.55 mill/uL (4.2-5.4); RED CELL DISTRIBUTION WIDTH 17.7 % (11.6-14.6)
[2020-12-07 08:21] LABS: CHLORIDE 111 mEq/L (98-107)
[2020-12-07] MEDS: MULTIVITAMINS,THER W-MINERALS TABLET PO SCH (09:26)
[2020-12-07] MEDS: ENOXAPARIN 30MG/0.3ML SYR SUBCUT SCH (09:26)
[2020-12-07 12:00] VITALS: BP 103/54
[2020-12-07 16:00] VITALS: BP 105/59
[2020-12-07 17:55] VITALS: BP 105/59
[2020-12-07] MEDS ORDERED: LIDOCAINE 5% PATCH TOP SCH (21:00)
== END 2020-12-07 20:35 | disposition home health service (06) | DRG 480 ==
LOC: 6EST 04:15
PROVIDERS: ADMIT Family Medicine Adult Medicine; ATTEND Family Medicine Adult Medicine
PROC: 0QSB04Z Reposition Right Lower Femur with Internal Fixation Device, Open Approach (ICD-10-PCS; principal; 2020-11-01)
PROC: 30233N1 Transfusion of Nonautologous Red Blood Cells into Peripheral Vein, Percutaneous Approach (ICD-10-PCS; 2020-11-01)
PROC: 4A10X4Z Monitoring of Central Nervous Electrical Activity, External Approach (ICD-10-PCS; 2020-11-08)
DX: S72.451A Displaced supracondylar fracture without intracondylar extension of lower end of right femur, initial encounter for closed fracture (principal); G92 Toxic encephalopathy; G82.20 Paraplegia, unspecified; D64.9 Anemia, unspecified; I10 Essential (primary) hypertension; G89.4 Chronic pain syndrome; E78.5 Hyperlipidemia, unspecified; K21.9 Gastro-esophageal reflux disease without esophagitis; M19.90 Unspecified osteoarthritis, unspecified site; Z96.642 Presence of left artificial hip joint; M41.9 Scoliosis, unspecified; R20.0 Anesthesia of skin; R53.81 Other malaise; E78.00 Pure hypercholesterolemia, unspecified; E53.8 Deficiency of other specified B group vitamins; E87.6 Hypokalemia; W18.39XA Other fall on same level, initial encounter; Z20.822 Contact with and (suspected) exposure to COVID-19; R26.89 Other abnormalities of gait and mobility; E55.9 Vitamin D deficiency, unspecified; R41.89 Other symptoms and signs involving cognitive functions and awareness; Z90.710 Acquired absence of both cervix and uterus; Z72.0 Tobacco use; Y93.89 Activity, other specified; Y99.8 Other external cause status; Y92.015 Private garage of single-family (private) house as the place of occurrence of the external cause
CPT/HCPCS: 36415; 70551; 71045; 73552; 76000; 80048; 80053; 80061; 81003; 82140; 82306; 82550; 82607; 82728; 82746; 82962; 83036; 83540; 83550; 83605; 84439; 84443; 84481; 84484; 85014; 85018; 85025; 86850; 86900; 86920; 87426; 90732; 93005; 93970; 97110; 97116; 97162; 97166; 97530; 97535; C1713; C1893; J0690; J1100; J1650; J1940; J3010; J3370; J3420; J3490; J7030; J7040; L1830; P9016